=== PATIENT | male | born 1950 | race Caucasian/White ===

== ENCOUNTER → 2016-09-24 | Outpatient (CLI) | payer BC ==
[2016-09-24 14:44] LABS: BASO % 0.4 % (0.0-1.0); EOS # 0.1 K/mm3 (0.0-0.50); EOS % 2.2 % (0.0-3.0); LARGE UNSTAINED CELL # 0.1 K/mm3 (0.0-0.4); LARGE UNSTAINED CELL % 1.2 % (0.0-4.0); LYMPH # 0.9 K/mm3 (1.5-4.5); LYMPH % 14.4 % (24.0-44.0); MEAN CORPUSCULAR HGB CONC 35.2 g/dl (32.0-36.5); MEAN CORPUSCULAR VOLUME 85.3 fl (80.0-96.0); MONO # 0.3 K/mm3 (0.0-0.8); MONO % 4.7 % (0.0-5.0); NEUTROPHILS # 4.3 K/mm3 (1.8-7.7); NEUTROPHILS % 77.1 % (36.0-66.0); PLATELET COUNT, AUTOMATED 141 k/mm3 (150-450); RED CELL DISTRIBUTION WIDTH 12.5 % (11.5-14.5); WHITE BLOOD COUNT 5.6 K/mm3 (4.0-10.0)
[2016-09-24 14:47] LABS: MICROSCOPIC INDICATED? MAN YES (NO)
[2016-09-24 14:48] LABS: SQUAMOUS EPITHELIAL CELL URINE SMALL AMOUNT /hpf (SMALL AMT); WBC, URINE 0-1 /hpf (0-3)
[2016-09-24 14:49] LABS: BACTERIA, URINE NONE SEEN; HYALINE CAST, URINE NONE SEEN /lpf (0-1); MICROSCOPIC EXAM PERFORMED
[2016-09-24 14:54] LABS: ALBUMIN 3.9 GM/DL (3.2-5.2); ALBUMIN/GLOBULIN RATIO 1.44 (1.00-1.93); ALKALINE PHOSPHATASE 72 U/L (45-117); ALT/SGPT 29 U/L (12-78); ANION GAP 4 MEQ/L (8-16); AST/SGOT 27 U/L (15-37); BILIRUBIN,TOTAL 0.8 MG/DL (0.2-1.0); BLOOD UREA NITROGEN 10 MG/DL (7-18); CALCIUM LEVEL 8.7 MG/DL (8.8-10.2); CARBON DIOXIDE LEVEL 31 MEQ/L (21-32); CHLORIDE LEVEL 104 MEQ/L (98-107); CREATININE FOR GFR 1.12 MG/DL (0.70-1.30); GLOMERULAR FILTRATION RATE > 60.0 (>49); GLUCOSE, FASTING 92 MG/DL (80-110); POTASSIUM SERUM 4.1 MEQ/L (3.5-5.1); SODIUM LEVEL 139 MEQ/L (136-145); TOTAL PROTEIN 6.6 GM/DL (6.4-8.2)
[2016-09-24 15:24] LABS: ERYTHROCYTE SEDIMENTATION RATE 23 mm/hr (0-20)
== END ==
LOC: M LAB 13:53
PROVIDERS: ATTEND Physician Assistant
DX: L95.8 Other vasculitis limited to the skin (principal)

== ENCOUNTER → 2016-12-02 | Outpatient (CLI) | payer BC ==
--- NOTE | 2016-12-02 19:59 | REP ---
Whole body PET CT scan: The studies performed for evaluation of a and known left lower lobe lung mass. Comparison is the CT of the chest dated 10/22/2016. Whole body PET scanning is performed from skull base to the upper thighs. Neck and supraclavicular areas: There are no hypermetabolic foci. Chest: There are no hypermetabolic foci. The uptake in the patient's known left lower lobe mass measures a standard uptake value of 2.2. This is not hypermetabolic. Abdomen, pelvis and upper thighs: There are no hypermetabolic foci. Impression: Negative whole body radionuclide CT scan. There are no hypermetabolic foci. The patients known left lower lobe lung mass demonstrates non hypermetabolic uptake. Signed by Tino Wolf MD 12/02/2016 07:51 P
== END ==
LOC: M PLARAD 07:40
PROVIDERS: ATTEND Family Medicine
DX: R91.8 Other nonspecific abnormal finding of lung field (principal)

== ENCOUNTER → 2017-01-22 | Outpatient (CLI) | payer BC ==
[2017-01-22 08:38] LABS: BASO # 0.1 K/mm3 (0.0-0.2); EOS # 0.2 K/mm3 (0.0-0.50); EOS % 3.8 % (0.0-3.0); LARGE UNSTAINED CELL # 0.1 K/mm3 (0.0-0.4); LARGE UNSTAINED CELL % 1.7 % (0.0-4.0); LYMPH # 1.7 K/mm3 (1.5-4.5); MEAN CORPUSCULAR HEMOGLOBIN 30.2 pg (27.0-33.0); MEAN CORPUSCULAR HGB CONC 35.5 g/dl (32.0-36.5); MONO # 0.3 K/mm3 (0.0-0.8); MONO % 5.5 % (0.0-5.0); NEUTROPHILS # 3.5 K/mm3 (1.8-7.7); PLATELET COUNT, AUTOMATED 144 k/mm3 (150-450); WHITE BLOOD COUNT 5.8 K/mm3 (4.0-10.0)
[2017-01-22 08:46] LABS: INR 1.06
[2017-01-22 09:08] LABS: ALBUMIN 3.9 GM/DL (3.2-5.2); ALKALINE PHOSPHATASE 71 U/L (45-117); ALT/SGPT 29 U/L (12-78); ANION GAP 5 MEQ/L (8-16); AST/SGOT 23 U/L (15-37); BILIRUBIN,TOTAL 0.5 MG/DL (0.2-1.0); BLOOD UREA NITROGEN 25 MG/DL (7-18); CALCIUM LEVEL 9.6 MG/DL (8.8-10.2); CARBON DIOXIDE LEVEL 31 MEQ/L (21-32); CHLORIDE LEVEL 104 MEQ/L (98-107); CREATININE FOR GFR 1.13 MG/DL (0.70-1.30); GLOMERULAR FILTRATION RATE > 60.0 (>49); GLUCOSE, FASTING 109 MG/DL (80-110); POTASSIUM SERUM 4.8 MEQ/L (3.5-5.1); SODIUM LEVEL 140 MEQ/L (136-145); TOTAL PROTEIN 6.5 GM/DL (6.4-8.2)
--- NOTE | 2017-01-22 09:09 | REP ---
Abdominal right upper quadrant ultrasound: Comparisons are the abdominal right upper quadrant ultrasound dated 01/30/2016, abdominal MRI dated 04/29/2016, and images during ultrasound-guided needle biopsy of the liver dated 06/15/2016. The the patient has a known mass arising from the medial segment of the left lobe of the liver. This mass is again identified today and measures 3.8 x 3.1 x 3.0 cm. On the prior ultrasound. The mass measures 2.0 x 1.7 cm. The hepatic parenchyma is otherwise homogeneous, unremarkable and unchanged. There is no cholelithiasis, gallbladder wall thickening or pericholecystic fluid. There is no intrahepatic or extrahepatic biliary duct dilatation, the common duct measures 5.2 mm in diameter. Balloon the visualized portion of the pancreatic head is unremarkable. The body and tail are obscured by bowel gas. There is no right renal hydronephrosis, calculus, mass or cyst. Right kidney is normal size measuring 11.7 inches craniocaudad length. There is no free fluid. Impression: The patient's known mass arising from the medial segment of the hepatic left lobe has increased in size from the prior ultrasound of 01/30/2016. Signed by Tino Wolf MD 01/22/2017 09:00 A
== END ==
LOC: M RAD 07:43
PROVIDERS: ATTEND Physician Assistant Medical
DX: K74.60 Unspecified cirrhosis of liver (principal)

== ENCOUNTER → 2017-05-20 | Outpatient (CLI) | payer BC ==
--- NOTE | 2017-05-20 09:28 | REP ---
Clinical: History of pulmonary fibrosis and hepatitis C. Comparison: Outside examination dated 02/22/2017. Findings: Chronic, stable subpleural fibrosis and diffuse interstitial changes are again identified and remain essentially stable as compared to 02/22/2017. The subtle ground-glass opacity in the right upper lobe identified on prior examination has resolved. The pleural-based mass / consolidation in the left lower lobe measuring up to 2.5 cm maximal transverse diameter (images 57 - 63) is essentially unchanged and otherwise nonspecific by appearance; differential diagnosis may include chronic scarring / atelectasis, consolidation, and less likely active process including neoplasm. No further, new significant consolidation, nodule or mass lesion is appreciated. No pleural effusion. No pneumothorax. Tracheobronchial tree is patent and again demonstrates chronic bronchiectasis. No obvious axillary, hilar, or mediastinal adenopathy. Atherosclerotic changes to the thoracic aorta and coronary arteries noted without aortic aneurysm. No pericardial effusion. Musculoskeletal structures demonstrate age-related degenerative changes. Limited evaluation of the upper abdomen demonstrates postsurgical changes to the liver with surgical clips surrounding a low density cystic-appearing structure measuring roughly 6.7 x 5.8 x 5.4 cm which should be correlated with surgical history and may represent gallbladder versus seroma. Impression: 1. Lungs demonstrate chronic fibrosis, scarring and interstitial changes essentially unchanged from prior examination. The previously noted ground-glass opacity in the right upper lobe has resolved while the pleural-based density in the left lower lobe currently measuring 2.5 cm maximal transverse diameter remains stable. Differential diagnosis for this lesion includes but is not limited to chronic scarring / atelectasis, chronic infiltrate and less likely active process such as malignancy. Follow-up examination in 6-9 months may be warranted. 2. No further acute mediastinal or pleuroparenchymal process identified. 3. Postsurgical changes to the liver as described above requires correlation. Signed by Acosta Houston MD 05/20/2017 09:19 A
== END ==
LOC: M RAD 07:18
PROVIDERS: ATTEND Internal Medicine Pulmonary Disease
DX: R91.8 Other nonspecific abnormal finding of lung field (principal)